=== PATIENT | male | born 1995 | race Caucasian/White ===

== ENCOUNTER 2017-09-29 13:00 | Inpatient (IN) | payer BC, OTHER ==
[~2017-09-29] VITALS: Ht 180.3 cm; Wt 107.5 kg
[~2017-09-29 13:00] MED LIST: ACET-787 PO; AMOX-842 PO; CIPR500T4 PO; DOCU-300 PO; IBUP-2213 PO; PROM25TA85 PO; TYL3 PO
[2017-09-29] MEDS ORDERED: fentaNYL 0.05 MG/ML VIAL IVP ONE ×3 (13:05→16:45)
[2017-09-29] MEDS ORDERED: ONDANSETRON 4 MG/2 ML VIAL IVP ONE ×2 (13:05→14:55)
[2017-09-29] MEDS ORDERED: NACL 0.9% 1,000 ML IV ONE (13:05)
[2017-09-29 13:17] VITALS: BP 104/64
--- NOTE | 2017-09-29 13:17 | NUR ---
22Y/M BIB SELF FOR PERIRECTAL ABCESS WITH PAIN. PATIENT CAME TO ER YESTERDAY FOR SAME COMPLAINT. DENIES N/V/D; SKIN IS PINK/WARM/DRY; AAOX4 PT DENIES ANY FEVER, CP, SOB, OR COUGH AT THIS TIME; PATIENT STATES PAIN OF 5/10 AT THIS TIME; VSS; PATIENT POSITIONED FOR COMFORT; HOB ELEVATED; BEDRAILS UP X2; BED DOWN. ER MD MADE AWARE OF PT STATUS.
[2017-09-29] MEDS ORDERED: LIDOCAINE/PRILOCAINE 2.5% 5 GM TUBE TP ONE (14:00)
[2017-09-29 14:04] LABS: PROTHROMBIN TIME 12.5 secs (10.8-13.4)
[2017-09-29] MEDS ORDERED: LIDOCAINE/PRILOCAINE 2.5% 30 GM TUBE TP ONE (14:06)
[2017-09-29 14:08] LABS: BASOPHILS % (AUTO) 0.4 % (0.0-2.0); EOSINOPHILS # (AUTO) 0.2 K/uL (0-0.4); EOSINOPHILS % (AUTO) 2.3 % (0.0-4.0); HEMATOCRIT 43.2 % (36-52); LYMPHOCYTES # (AUTO) 0.6 K/uL (2.0-11.5); LYMPHOCYTES % (AUTO) 6.4 % (20.5-51.1); MEAN CORPUSCULAR HEMOGLOBIN 32 pg (27-31); MEAN CORPUSCULAR HGB CONC 35 g/dL (33-37); MEAN CORPUSCULAR VOLUME 90.4 fL (80-94); MONOCYTES # (AUTO) 0.7 K/uL (0.8-1.0); MONOCYTES % (AUTO) 6.9 % (1.7-9.3); NEUTROPHILS # (AUTO) 8.2 K/uL (1.8-7.7); PLATELET COUNT (AUTO) 150 K/uL (140-450); RED BLOOD CELL COUNT(AUTO) 4.78 MIL/uL (4.20-6.10); RED CELL DISTRIBUTION WIDTH 12.7 % (11.6-13.7); WHITE BLOOD COUNT (AUTO) 9.8 K/uL (4.5-11.0)
[2017-09-29 14:49] LABS: ALBUMIN 4.1 g/dL (3.4-5.0); ANION GAP 13.1 (8-16); CARBON DIOXIDE 26.8 mmol/L (21-32); CREATININE 1.1 mg/dL (0.7-1.3); POTASSIUM 3.9 mmol/L (3.5-5.1); TOTAL BILIRUBIN 3.6 mg/dL (0.0-1.0)
--- NOTE | 2017-09-29 15:12 | NUR ---
TAKEN TO CT
[2017-09-29] MEDS ORDERED: LEVOFLOXACIN 750 MG/D5W PREMIX 150 ML IV ONE (16:10)
[2017-09-29] MEDS ORDERED: metroNIDAZOLE 500 MG/NS PREMIX 100 ML IV ONE (16:10)
[2017-09-29] MEDS ORDERED: CLIN300C2 PO (16:28)
[2017-09-29] MEDS ORDERED: OMEP20TC12 PO (16:28)
[2017-09-29] MEDS ORDERED: fentaNYL 0.05 MG/ML VIAL ONE ×2 (16:38→17:09)
--- NOTE | 2017-09-29 17:05 | NUR ---
Patient will be admitted to care of DR. NIÑO. Admited to SURGERY/PACU. Will go to room PACU. Belongings list completed. Report to TIMA OROZCO, PACU.
[2017-09-29] MEDS ORDERED: MEPERIDINE 50 MG/ML SYR ONE (17:09)
[2017-09-29] MEDS ORDERED: MIDAZOLAM 2 MG/2 ML VIAL ONE (17:09)
[2017-09-29] MEDS ORDERED: ONDANSETRON 4 MG/2 ML VIAL ONE (17:10)
[2017-09-29] MEDS ORDERED: KETOROLAC 60 MG/2 ML VIAL IM ONE (17:10)
[2017-09-29] MEDS ORDERED: PROPOFOL 200 MG/20 ML VIAL IV ONE (17:10)
[2017-09-29] MEDS ORDERED: SEVOFLURANE 250 ML BTL INH ONE (17:10)
[2017-09-29] MEDS ORDERED: DEXAMETHASONE 4 MG/ML VIAL ONE (17:10)
[2017-09-29] MEDS ORDERED: BUPIVACAINE-MPF 0.25% 30 ML VIAL INJ ONE (17:12)
[2017-09-29] MEDS ORDERED: HYDROGEN PEROXIDE 3% 240 ML BTL TP ONE (17:13)
[2017-09-29] MEDS ORDERED: MEPERIDINE 25 MG/ML SYR IVP PRN (18:00)
[2017-09-29] MEDS ORDERED: ONDANSETRON 4 MG/2 ML VIAL IVP PRN (18:00)
[2017-09-29] MEDS ORDERED: diphenhydrAMINE 50 MG/ML VIAL IVP PRN (18:00)
[2017-09-29] MEDS ORDERED: MEPERIDINE 25 MG/ML SYR ONE ×2 (18:23→22:21)
--- NOTE | 2017-09-29 19:13 | NUR ---
ADMITTED 22 YEARS OLD MALE FROM PACU VIA GURNEY ACCOMPANIED BY FAMILY MEMBER AT BEDSIDE. S/P I&D OF RECTAL ABSCESS. VITAL SIGNS STABLE. SLEEPING, EASILY AROUSABLE. NO COMPLAINS. CALL LIGHT WITHIN REACH. ORIENTED TO ROOM AND UNIT ROUTINES. AFEBRILE. CARE BOARD UPDATED. SEE NURSING ADMISSION ASSESSMENT AND HISTORY.
[2017-09-29] MEDS ORDERED: KETOROLAC 30 MG/ML VIAL IVP PRN (19:40)
[2017-09-29] MEDS ORDERED: IBUPROFEN 600 MG TAB PO PRN (20:10)
[2017-09-29] MEDS: LACTATED RINGERS 1,000 ML IV SCH (20:56)
[2017-09-29] MEDS: LEVOFLOXACIN 500 MG/D5W PREMIX 100 ML IV SCH (21:00)
[2017-09-29] MEDS: DEXT 5% /NACL 0.9% 1,000 ML IV SCH (21:05)
[2017-09-29] MEDS: metroNIDAZOLE 500 MG/NS PREMIX 100 ML IV SCH (21:05)
--- NOTE | 2017-09-29 21:07 | NUR ---
PT NOT READY TO DO INCENTIVE SPIROMETER. WILL TRY AGAIN LATER.
[2017-09-29] MEDS: MEPERIDINE 25 MG/ML SYR IVP PRN (22:44)
[2017-09-30 00:03] VITALS: BP 117/50
[2017-09-30] MEDS: HYDROcodone/APAP 10/325 MG 1 TAB TAB PO PRN ×4 (00:36→22:14)
--- NOTE | 2017-09-30 00:44 | NUR ---
VITAL SIGNS STABLE. AFEBRILE. DRESSING DRY AND INTACT. CALL LIGHT WITHIN REACH.
[2017-09-30] MEDS ORDERED: PNEUMOCOCCAL VACCINE 23 MCG/0.5 ML VIAL IMVAC ONE (01:35)
[2017-09-30] MEDS: LACTATED RINGERS 1,000 ML IV SCH ×3 (03:42→18:56)
[2017-09-30] MEDS ORDERED: MEPERIDINE 25 MG/ML SYR ONE (04:44)
[2017-09-30] MEDS: metroNIDAZOLE 500 MG/NS PREMIX 100 ML IV SCH ×2 (04:54→12:32)
[2017-09-30] MEDS: MEPERIDINE 25 MG/ML SYR IVP PRN ×3 (04:55→18:04)
[2017-09-30] MEDS: DEXT 5% /NACL 0.9% 1,000 ML IV SCH ×2 (05:40→15:40)
[2017-09-30 07:03] LABS: BASOPHILS % (AUTO) 0.1 % (0.0-2.0); EOSINOPHILS % (AUTO) 0.3 % (0.0-4.0); HEMATOCRIT 43.7 % (36-52); HEMOGLOBIN 15.2 g/dL (12.0-18.0); LYMPHOCYTES # (AUTO) 0.5 K/uL (2.0-11.5); MEAN CORPUSCULAR HEMOGLOBIN 32 pg (27-31); MEAN CORPUSCULAR HGB CONC 35 g/dL (33-37); MONOCYTES # (AUTO) 0.5 K/uL (0.8-1.0); MONOCYTES % (AUTO) 5.9 % (1.7-9.3); NEUTROPHILS # (AUTO) 7.4 K/uL (1.8-7.7); NEUTROPHILS % (AUTO) 87.7 % (42.2-75.2); PLATELET COUNT (AUTO) 159 K/uL (140-450); RED CELL DISTRIBUTION WIDTH 12.7 % (11.6-13.7); WHITE BLOOD COUNT (AUTO) 8.4 K/uL (4.5-11.0)
--- NOTE | 2017-09-30 07:28 | NUR ---
ENDORSED CARE AT BEDSIDE WITH YONI OROZCO, PATIENT IN STABLE CONDITION.
--- NOTE | 2017-09-30 07:29 | NUR ---
REPORT RECEIVED FROM LEAD SOFTWARE DEVELOPER NURSE, PT RESTING QUIETLY IN BED NAD, RESP EVEN UNLABORED, SKIN WARM DRY COLOR WNL, DENIES PAIN OR DISCOMFORT, PLAN OF CARE REVIEWED, NO IMMEDIATE NEEDS IDENTIFIED AT THIS TIME, CALL DALEY WITHIN REACH SIDE RAILS UP, BED LOCKED IN LOW POSITION, WILL CONTINUE TO MONITOR.
[2017-09-30 08:00] VITALS: BP 109/59
[2017-09-30 08:07] LABS: ANION GAP 13.3 (8-16); CARBON DIOXIDE 26.1 mmol/L (21-32); POTASSIUM 4.4 mmol/L (3.5-5.1)
--- NOTE | 2017-09-30 08:26 | NUR ---
AM MED GIVEN. PAIN ASSESSMENT 12/14. RECTAL INCISION PAIN. DRESSING DRY AND INTACT. PT WAS MEDICATED ORDERED. WILL CONTINUE TO MONITOR.
[2017-09-30] MEDS ORDERED: NON-FORMULARY ITEM (Omeprazole (Omeprazole) 20 MG) PO SCH (09:00)
[2017-09-30] MEDS ORDERED: PANTOPRAZOLE 40 MG TABEC PO SCH (09:00)
--- NOTE | 2017-09-30 09:54 | NUR ---
PATIENT HAS BEEN SCREENED AND CATEGORIZED HIGH NUTRITION RISK. PATIENT WILL BE SEEN WITHIN 1-2 DAYS OF ADMISSION. 09/30/17 - 10/01/[address]
--- NOTE | 2017-09-30 10:15 | NUR ---
PT WANTS TO BE DISCHARGED HOME, PT STATES HE WAS TOLD HE WILL GO HOME FIRST THING IN THE MORNING, DR Alexx NIÑO PAGED AND CALLED BACK AND DR NIÑO RECOMMENDS PT TO STAY FOR CURRENT IV ANTIBIOTIC UNTIL WOUND CULTURE COMES BACK, PT INFORMED OF DR Jenna NIÑO'S RECOMMENDATION, BUT PT STATES HE CAN'T STAY HERE FOR THAT LONG, PT EXPRESSES THAT HE WANTS TO GO HOME AMA, PT STATES "I WANT TO GET PRESCRIPTION FOR PAIN MED AND ANTIBIOTIC AND GO HOME", PT EDUCATED THAT WHEN A PATIENT LEAVE AMA, PRESCRIPTIONS WILL NOT BE PROVIDED, PT STATES " I WILL JUST GO TO MY REGULAR DOCTOR." WILL NOTIFY DR NIÑO.
--- NOTE | 2017-09-30 11:08 | NUR ---
PT NOW DECIDED HE WILL STAY, PT STATES " MY MOM WILL KILL ME IF I GO HOME AMA", PT NOW STATES PAIN IS EXCRUCIATING, 03/16, WILL MEDICATE.
--- NOTE | 2017-09-30 12:39 | NUR ---
SCHEDULED ANTIBIOTIC STARTED IV WITHIN NORMAL LIMITS. PT STATES PAIN BETTER THAN BEFORE. APOLOGIZING FOR PRIOR BEHAVIOR. ALL SAFETY MEASURES IN PLACE. WILL CONTINUE TO MONITOR.
--- NOTE | 2017-09-30 12:56 | NUR ---
REPORT GIVEN TO ERNESTO ARSHAD FOR CONTINUITY OF CARE.
--- NOTE | 2017-09-30 13:00 | NUR ---
RECEIVED REPORT FROM ERNESTO BEAULIEU. PT IS RESTING IN BED TALKING ON HIS CELL PHONE, PT HAS IV ON HIS LEFT AC, PATENT, INTACT, FLUSHING WELL, NO S/S OF RESPIRATORY DISTRESS OR DISCOMFORT NOTED, CALL LIGHT WITHIN REACH, WILL CONTINUE TO MONITOR.
[2017-09-30] MEDS: LORazepam 2 MG/ML VIAL IM/IVP PRN ×2 (13:11→19:05)
--- NOTE | 2017-09-30 14:21 | NUR ---
09/30/17 RD INITIAL ASSESSMENT COMPLETED PLEASE REFER TO NUTRITION ASSESSMENT UNDER CARE ACTIVITY FOR ESTIMATED NUTRITIONAL NEEDS. 1. CONTINUE REGULAR DIET TOLERATED 2. RD TO FOLLOW-UP 5-7 DAYS, LOW RISK MU [address] RD
--- NOTE | 2017-09-30 15:23 | NUR ---
CM NOTE FAXED INITIAL REVIEW TO [facility] [place] [phone] PHONE HERNAN [phone]
--- NOTE | 2017-09-30 15:28 | NUR ---
PATIENT ASKED TO TAKE A SHOWER AT THIS TIME.
[2017-09-30] MEDS: ONDANSETRON 4 MG/2 ML VIAL IVP PRN ×2 (16:48→22:14)
[2017-09-30 17:30] VITALS: BP 137/78
--- NOTE | 2017-09-30 19:17 | NUR ---
ENDORSED PT TO DRAPERY CUTTER MACHINE NURSE FOR CONTINUITY OF CARE. PT STABLE AT THIS TIME.
--- NOTE | 2017-09-30 19:20 | NUR ---
RECEIVED PT IN STABLE CONDITION FROM AM NURSE. AWAKE,ALERT AND ORIENTED X4. AMBULATORY. MED SURG PT. WITH VISITORS AT BEDSIDE. NO C/O PAIN AT THIS TIME. WITH DRESSING ON THE PERINEAL AREA. HAS HL ON THE LT AC#18. FLUSHED WITH NS, CLEAR AND PATENT. INSTRUCTED PT TO CONTINUE WITH IVF. PLAN OF CARE DISCUSSED AND VERBALIZED UNDERSTANDING. CALL LIGHT PLACED WITHIN EASY REACH. WILL CONTINUE TO MONITOR.
--- NOTE | 2017-09-30 20:15 | NUR ---
LAB CALLED @2005 FOR RESULT OF PERRECTAL ABSCESS CULTURE GROUP A BETA STREP. PAGED DR. HERNÁNDEZ ,CALLED BACK AT THIS TIME WITH ORDERS.
[2017-09-30] MEDS: LEVOFLOXACIN 500 MG/D5W PREMIX 100 ML IV SCH (21:28)
[2017-09-30] MEDS ORDERED: AMPICILLIN/SULBACTAM 3 GM VIAL ONE (21:53)
--- NOTE | 2017-09-30 22:45 | NUR ---
UNASYN IVPB TO START. PT OUT AMBULATING WITH FAMILY. INSTRUCTED FAMILY IN ROOM TO CALL IF BACK TO ROOM TO START THE ANTIBIOTICS.
[2017-09-30] MEDS: AMPICILLIN/SULBACTAM 3 GM in NACL 0.9% 100 ML IV SCH (23:15)
--- NOTE | 2017-09-30 23:23 | NUR ---
2315. PT IV LT AC CAME OUT WHILE WALKING AROUND. VIVEK GU NURSE STARTED A NEW IV ACCESS ON THE RT HAND #18,CLEAR AND PATENT.
[2017-10-01] MEDS ORDERED: MEPERIDINE 25 MG/ML SYR ONE (00:12)
[2017-10-01 00:15] VITALS: BP 116/77
[2017-10-01] MEDS: MEPERIDINE 25 MG/ML SYR IVP PRN ×3 (00:23→18:40)
[2017-10-01] MEDS: DEXT 5% /NACL 0.9% 1,000 ML IV SCH ×4 (01:40→21:10)
--- NOTE | 2017-10-01 02:10 | NUR ---
PT GOT UP THEN IV ACCESS ON RT HAND ACCIDENTALLY PULLED OUT AGAIN . CATHETER INTACT. WILL START A NEW IV ACCESS.
--- NOTE | 2017-10-01 03:00 | NUR ---
VIVEK GU NURSE STARTED A NEW IV ACCESS ON PT @ RT AC#18. CLEAR AND PATENT. WILL RESTART IVF ON THE NEW IV SITE.
[2017-10-01] MEDS: LORazepam 2 MG/ML VIAL IM/IVP PRN ×2 (03:16→13:07)
[2017-10-01] MEDS: LACTATED RINGERS 1,000 ML IV SCH ×3 (03:16→21:09)
[2017-10-01] MEDS ORDERED: AMPICILLIN/SULBACTAM 3 GM VIAL ONE (05:06)
[2017-10-01 05:41] LABS: BASOPHILS % (AUTO) 0.5 % (0.0-2.0); EOSINOPHILS # (AUTO) 0.3 K/uL (0-0.4); EOSINOPHILS % (AUTO) 3.8 % (0.0-4.0); HEMATOCRIT 39.5 % (36-52); HEMOGLOBIN 13.9 g/dL (12.0-18.0); LYMPHOCYTES # (AUTO) 1.4 K/uL (2.0-11.5); MEAN CORPUSCULAR HEMOGLOBIN 32 pg (27-31); MEAN CORPUSCULAR HGB CONC 35 g/dL (33-37); MEAN CORPUSCULAR VOLUME 90.6 fL (80-94); MONOCYTES # (AUTO) 0.4 K/uL (0.8-1.0); MONOCYTES % (AUTO) 6.3 % (1.7-9.3); NEUTROPHILS # (AUTO) 4.6 K/uL (1.8-7.7); NEUTROPHILS % (AUTO) 68.4 % (42.2-75.2); PLATELET COUNT (AUTO) 162 K/uL (140-450); RED BLOOD CELL COUNT(AUTO) 4.36 MIL/uL (4.20-6.10); RED CELL DISTRIBUTION WIDTH 12.6 % (11.6-13.7); WHITE BLOOD COUNT (AUTO) 6.7 K/uL (4.5-11.0)
--- NOTE | 2017-10-01 06:00 | NUR ---
ABLE TO SLEEP WELL . NO C/O OF ANY DISCOMFORT NOR PAIN NOTED AT THIS TIME.
[2017-10-01] MEDS: PANTOPRAZOLE 40 MG TABEC PO SCH (06:02)
[2017-10-01] MEDS: AMPICILLIN/SULBACTAM 3 GM in NACL 0.9% 100 ML IV SCH ×3 (06:02→18:00)
[2017-10-01 06:31] LABS: CARBON DIOXIDE 24.6 mmol/L (21-32); CREATININE 1.1 mg/dL (0.7-1.3); POTASSIUM 3.6 mmol/L (3.5-5.1)
--- NOTE | 2017-10-01 07:29 | NUR ---
ENDORSED PT IN STABLE CONDITION TO AM NURSE.
--- NOTE | 2017-10-01 07:30 | NUR ---
RECEIVED REPORT FROM PATTERN CHANGER AND REPAIRER RN. PATIENT IS RESTING IN BED, AWAKES EASILY. HAS NO SIGNS AND SYMPTOMS OF ACUTE DISTRESS NOTED AT THIS TIME. HAS IV TO THE RIGHT AC 18G, INFUSING D5NS AT 100 ML/HR. SITE IS CLEAN, DRY, PATENT AND INTACT. DISCUSSED PLAN OF CARE WITH PATIENT AND HE VERBALIZED UNDERSTANDING. BED IN LOWEST POSITION, SIDE RAILS UP X2, CALL LIGHT WITHIN REACH.
[2017-10-01 08:00] VITALS: BP 123/93
--- NOTE | 2017-10-01 08:44 | NUR ---
DR JORDAN CAME AND SPOKE WITH THE PATIENT. INFORMED HIM THAT PATIENT HAD WOUND PACKED YESTERDAY. PATIENT STATED THAT HE TOOK A SHOWER BUT NO SITZ BATH. DR JORDAN SAID PATIENT IS OKAY TO GO HOME ON PO ANTIBIOTICS.
[2017-10-01] MEDS: HYDROcodone/APAP 10/325 MG 1 TAB TAB PO PRN (11:12)
--- NOTE | 2017-10-01 12:18 | NUR ---
WOUND CARE EVALUATION NOTE: REASON FOR EVALUATION: S/P I&D LEFT LEYDI RECTAL WOUND WOUND ASSESSMENT DONE ON THIS 22 Y/O MALE PATIENT FROM HOME TO [facility], WITH INITIAL DIAGNOSIS OF PERIRECTAL PAIN X 2 DAYS. ALL ABOVE INFORMATION WAS OBTAINED FROM THE ADMISSION H&P. HISTORY OF PERIRECTAL ABSCESS PER PT. PT IS AAX4. LABS ARE WBC 6.7, H/H 4.3/13.9, GLUCOSE 113 AND ALBUMIN 1.4. SKIN WARM TO TOUCH WNL, SKIN TURGOR GOOD. PT. ABLE TO AMBULATE TO BR. WOUND CARE TEACHING PROVIDES, PT STAT " MY MOM IS AN ER NURSE ,SHE KNOWS HOW TO DO IT." INITIAL PLAN OF CARE DISCUSSED WITH PT AND PRIMARY RN. PT.ABLE TO VERBALIZE UNDERSTANDING. PT HAS LOW PAIN TOLERANCE, PT IS ALLERGY TO MORPHINE, PAIN MEDICATIONS GIVEN BY PRIMARY RN BEFORE WOUND CARE, GIRLFRIEND IS AT BED SIDE COACHING AND DISTRACTION PROVIDES. INTEGUMENTARY: S/P I&D ON LEFT LEYDI-RECTAL WOUND, 5X2X1.2CM WOUND BED RED AND CLEAN, SMALL AMOUNT OF SEROSANGUINEOUS DRAINAGE NOTICE, NO ODOR, WOUND EDGE WELL DEFINED, LEYDI-WOUND SKIN INTACT. RECOMMENDATIONS: -DO NOT USE WOUND CLEANSING SOLUTION. -CLEANSE LEFT LEYDI-RECTAL WOUND WITH NORMAL SALINE, PAT DRY, PACK WOUND WITH 1/4" IODOFORM AND COVER WITH DRY DRESSING QD AND PRN IF SOILING, PLEASE PACK WOUND FROM 6 O'CLOCK. -ENCOURAGE TURN AND REPOSITION Q 2H, AMBULATE TOLERATE. -ASSESS AND MONITOR WOUND CONDITION DURING DRESSING CHANGE. REPORT FOR ANY S/ OF INFECTION -KEEP LEYDI-RECTAL CLEAN AND DRY AT ALL TIMES. - FOLLOW UP APPOINTMENT WITH SURGEON 1-2 WEEKS AFTER DISCHARGE. RECOMMENDATIONS DISCUSSED WITH PRIMARY RN WILL FOLLOW UP PATIENT PRN. PLEASE CONTACT WOUND CARE NURSE FOR ANY CONCERNS, QUESTIONS AND CHANGES IN SKIN CONDITION. Addendum: 10/01/17 at 1249 by Shaun Kraus RN (Grace) ALBUMIN LEVEL IS 4.1 NOT 1.4.
--- NOTE | 2017-10-01 13:30 | NUR ---
CHANDANA BRUNNER TECH LET ME KNOW THAT [employer] EMERGENCY DISPATCHER CALLED STATING THAT A PATIENT IS IN THE FRONT LOBBY. WENT TO CHECK AND IT WAS PT. MAYA WENT WITH ME TO CHECK ROOM AGAIN AND PATIENTS GIRLFRIEND WAS LAYING THE BED. MAYA ADDRESSED TO HER THAT WE DON'T ALLOW GUESTS IN THE PATIENTS BED, GIRLFRIEND STATED THAT SOMEONE ELSE HAD SAID IT WAS OKAY AND PATIENTS MOM IS IN CHARGE HERE. MAYA INFORMED THE GIRLFRIEND THAT SHE IS IN CHARGE OF THE UNIT.
--- NOTE | 2017-10-01 14:08 | NUR ---
FAXED CONCURRENT REVIEW TO [facility] [place] [phone] PHONE HERNAN [phone]
--- NOTE | 2017-10-01 15:53 | NUR ---
SPO[place] WITH HERNNA [place] [facility] SHE SAID IF PATIENT NEEDS HOME HEALTH FOR WOUND CARE, SHE SET UP WITH [facility], . AUTH IS [id number]. FAX IS [phone]. WHEN ORDER IS RECEIVED, FAX TO BOTH [facility] AND [facility] [facility] FAX IS [phone] ATTENTION TRICIA.
[2017-10-01 16:00] VITALS: BP 111/74
--- NOTE | 2017-10-01 16:30 | NUR ---
PATIENT HAD REMOVED IV TUBING FROM IV SITE AND WALKED AROUND. CONNECTED IV BACK TO PATIENT AND CONTINUED TO INFUSE UNASYN AT THIS TIME. NEXT DOSE IS DUE AT 1800. WILL ENDORSE TO BLIND INSTALLER NURSE SO THAT DOSE ISN'T TOO CLOSE TOGETHER.
--- NOTE | 2017-10-01 17:55 | NUR ---
PATIENT REQUESTING TO TAKE A SHOWER. WILL COVER UP IV SITE.
--- NOTE | 2017-10-01 18:06 | NUR ---
RECEIVED A CALL EARLIER FROM TRICIA FROM [facility] [place]. SHE SAID THE PHONE NUMBERS ON THE FACE SHEET DIDN'T GO THROUGH. YUVAL SMITH SPOKE WITH THE PATIENT AND HE SAID HIS CELL I [phone] AND TO CALL 2 TIMES AND IT GOES TO VOICE MAIL CALLED TRICIA AT [phone] AND GAVE HER THE PHONE NUMBER.
--- NOTE | 2017-10-01 18:12 | NUR ---
ENDORSED PATIENT TO ERNESTO ROSAS FOR CONTINUITY OF CARE. PATIENT IN STABLE CONDITION.
--- NOTE | 2017-10-01 18:12 | NUR ---
RECEIVED REPORT FROM ARYA RN. PT IS CURRENTLY TAKING A SHOWER. WILL NEED TO REPACK HIS WOUND. UNASYN DOSE IS DUE AT 1800. PER VALERI, PT WAS DISCONNECTED AND FINISHED HIS 1200 DOSE AROUND 1700. CALLED PHARMACIST AND NOTIFIED HER OF THE SITUATION. WILL HOLD 1800. OK PER PHARMACIST.
--- NOTE | 2017-10-01 18:47 | NUR ---
ADMINISTERED DEMEROL REQUESTED. PT TOLERATED WELL. WILL LET ME KNOW WHEN THE PT IS READY FOR WOUND CARE.
--- NOTE | 2017-10-01 19:05 | NUR ---
REPACKED INCISION. PT TOLERATED WELL. WILL CONTINUE TO MONITOR PT.
--- NOTE | 2017-10-01 19:25 | NUR ---
ENDORSED PT TO THE HOUSEKEEPING AND LAUNDRY TEAM LEADER NURSE AT BEDSIDE FOR CONTINUITY OF CARE. PT IS IN STABLE CONDITION.
--- NOTE | 2017-10-01 19:35 | NUR ---
RECEIVED REPORT FROM DAY SHIFT, PATIENT RESTING IN BED, NO S/S OF DISTRESS NOTED, GIRLFRIEND AND FATHER AT THE BEDSIDE. IV PATENT AND INTACT. PLAN OF CARE DISCUSSED, SAFETY MEASURE ENSURED, WILL CONTINUE TO MONITOR.
[2017-10-01] MEDS: NACL 0.9% IRR 250 ML BOTTLE IR SCH (20:50)
[2017-10-01] MEDS: LEVOFLOXACIN 500 MG/D5W PREMIX 100 ML IV SCH (21:04)
[2017-10-01] MEDS: ONDANSETRON 4 MG/2 ML VIAL IVP PRN (21:10)
--- NOTE | 2017-10-01 21:18 | NUR ---
DUE MEDICATION GIVEN, PATIENT TOLERATED WELL. ADMINISTERED ZOFRAN PATIENT REQUESTED DUE TO " I FEEL NAUSEA BECAUSE I ATE TOO MUCH." PATIENT IS PLAYING VIDEO GAME AND GIRLFRIEND AT THE BEDSIDE. NO S/S OF DISTRESS NOTED, WILL CONTINUE TO MONITOR.
--- NOTE | 2017-10-01 23:39 | NUR ---
PATIENT IS SLEEPING, NO S/S OF DISTRESS NOTED, RESPIRATION EVEN AND UNLABORED, CALL LIGHT WITHIN REACH, SAFETY MEASURE ENSURED, WILL CONTINUE TO MONITOR.
[2017-10-02] VITALS: BP 102/59
--- NOTE | 2017-10-02 01:45 | NUR ---
PATIENT LEFT ROOM AND WENT TO THE ER , ACCORDING TO THE PATIENT," I WANT TO GO TO THE ER TO TALK TO MY MOM." CHARGE NURSE IS AWARE. THEREFORE, UNASYN STARTED LATE.
[2017-10-02] MEDS: AMPICILLIN/SULBACTAM 3 GM in NACL 0.9% 100 ML IV SCH ×3 (01:50→11:59)
[2017-10-02] MEDS ORDERED: MEPERIDINE 25 MG/ML SYR ONE (02:02)
[2017-10-02] MEDS: MEPERIDINE 25 MG/ML SYR IVP PRN ×2 (02:15→09:12)
--- NOTE | 2017-10-02 02:30 | NUR ---
STATED PAIN 01/14, BP 122/76 HR 80, DEMEROL 25MG GIVEN ORDERED, WILL CONTINUE TO MONITOR.
--- NOTE | 2017-10-02 03:24 | NUR ---
PATIENT IS SLEEPING, NO S/S OF DISTRESS NOTED, RESPIRATION EVEN AND UNLABORED, ON ROOM AIR. CALL LIGHT WITHIN REACH, SAFETY MEASURE ENSURED, WILL CONTINUE TO MONITOR.
[2017-10-02] MEDS: LACTATED RINGERS 1,000 ML IV SCH ×2 (03:46→12:36)
[2017-10-02] MEDS: PANTOPRAZOLE 40 MG TABEC PO SCH (06:17)
[2017-10-02] MEDS: DEXT 5% /NACL 0.9% 1,000 ML IV SCH (06:41)
[2017-10-02 07:20] LABS: BASOPHILS # (AUTO) 0.1 K/uL (0.00-0.22); EOSINOPHILS # (AUTO) 0.2 K/uL (0-0.4); HEMOGLOBIN 14.9 g/dL (12.0-18.0); LYMPHOCYTES # (AUTO) 1.4 K/uL (2.0-11.5); LYMPHOCYTES % (AUTO) 27.9 % (20.5-51.1); MEAN CORPUSCULAR HEMOGLOBIN 31 pg (27-31); MEAN CORPUSCULAR HGB CONC 34 g/dL (33-37); MEAN CORPUSCULAR VOLUME 91.8 fL (80-94); MONOCYTES # (AUTO) 0.4 K/uL (0.8-1.0); MONOCYTES % (AUTO) 7.6 % (1.7-9.3); NEUTROPHILS # (AUTO) 2.9 K/uL (1.8-7.7); NEUTROPHILS % (AUTO) 59.5 % (42.2-75.2); PLATELET COUNT (AUTO) 196 K/uL (140-450); RED BLOOD CELL COUNT(AUTO) 4.79 MIL/uL (4.20-6.10); RED CELL DISTRIBUTION WIDTH 12.7 % (11.6-13.7); WHITE BLOOD COUNT (AUTO) 4.9 K/uL (4.5-11.0)
--- NOTE | 2017-10-02 07:20 | NUR ---
ENDORSED PLAN OF CARE TO DAY SHIFT RN, PATIENT IS SLEEPING, NO S/S OF DISTRESS NOTED, PATIENT IS IN STABLE CONDITION.
--- NOTE | 2017-10-02 07:21 | NUR ---
RECEIVED REPORT FROM MESMERIST NURSE AT BEDSIDE FOR CONTINUITY OF CARE. PATIENT ASLEEP. GIRLFRIEND AT BEDSIDE. IV BREATHING EVEN AND UNLABORED ON ROOM AIR. NO SIGNS OF DISTRESS OR SOB NOTED AT THIS TIME. IV PATENT, INTACT, AND ASYMPTOMATIC INFUSING IVF WELL. SAFETY PRECAUTION IN PLACE, CALL LIGHT WITHIN REACH, WILL CONTINUE TO MONITOR PATIENT.
[2017-10-02 07:32] LABS: CARBON DIOXIDE 29.5 mmol/L (21-32); CREATININE 1.1 mg/dL (0.7-1.3); POTASSIUM 4.5 mmol/L (3.5-5.1)
[2017-10-02 08:00] VITALS: BP 116/61
--- NOTE | 2017-10-02 09:18 | NUR ---
PATIENT C/O OF 10/10 PERINEAL PAIN, MEDICATED FOR PAIN. PATIENT TOLERATED IT WELL. PATIENT RESTING IN BED, GIRLFRIEND AT BEDSIDE. SAFETY PRECAUTION IN PLACE, CALL LIGHT WITHIN REACH. WILL CONTINUE TO MONITOR PATIENT.
--- NOTE | 2017-10-02 11:15 | NUR ---
DR. NIÑO IN TO SEE THE PATIENT. DISCHARGE ORDER IN, INFORMED PATIENT. PATIENT WILL STAY UNTIL HIS DOSE OF IVPB ANTIBIOTICS IS DONE. PATIENT AGREEABLE WITH THE PLAN. SAFETY PRECAUTION IN PLACE, CALL LIGHT WITHIN REACH, WILL CONTINUE TO MONITOR PATIENT.
[2017-10-02] MEDS ORDERED: AMOX-999 PO (11:18)
[2017-10-02] MEDS: HYDROcodone/APAP 10/325 MG 1 TAB TAB PO PRN (11:58)
[2017-10-02] MEDS: ONDANSETRON 4 MG/2 ML VIAL IVP PRN (12:07)
[2017-10-02] MEDS ORDERED: PNEUMOCOCCAL VACCINE 23 MCG/0.5 ML VIAL IMVAC SCH (13:35)
[2017-10-02] MEDS: NACL 0.9% IRR 250 ML BOTTLE IR SCH (13:40)
--- NOTE | 2017-10-02 13:45 | NUR ---
DRESSING CHANGED FOR PERINEAL WOUND. NO DRAINAGE NOTED. PATIENT MEDICATED WITH NORCO PROPHYLAXIS FOR PAIN. PATIENT TOLERATED DRESSING CHANGE WELL. FATHER AT BEDSIDE. PATIENT IV REMOVED, IV CATHETER INTACT, MINIMAL BLOOD NOTED, VACCINE GIVEN, NO REACTION NOTED, PATIENT TOLERATED IT WELL. DISCHARGE INSTRUCTION AND EDUCATION GIVEN, PATIENT AND FATHER VERBALIZED UNDERSTANDING. PATIENT WILL NOW GATHER HIS BELONGINGS AND GET READY TO BE DISCHARGED. Addendum: 10/02/17 at 2012 by Fan Nicholson RN ID BANDS CUT.
--- NOTE | 2017-10-02 14:15 | NUR ---
PATIENT AMBULATED OFF FLOOR ACCOMPANIED BY FATHER AND RN STUDENT. PATIENT TOOK ALL HIS BELONGINGS WITH HIM. PATIENT IN STABLE CONDITION.
== END 2017-10-02 14:15 | disposition home or self-care (01) | DRG 349 ==
LOC: MED 13:00 → MTU 16:47
PROVIDERS: ADMIT Preventive Medicine Preventive Medicine/Occupational Environmental Medicine; ATTEND Preventive Medicine Preventive Medicine/Occupational Environmental Medicine
PROC: 0D9Q0ZZ Drainage of Anus, Open Approach (ICD-10-PCS; principal; 2017-09-29 17:00)
DX: K61.1 Rectal abscess (principal); R16.1 Splenomegaly, not elsewhere classified; K61.0 Anal abscess; K58.9 Irritable bowel syndrome, unspecified; K21.9 Gastro-esophageal reflux disease without esophagitis; R73.9 Hyperglycemia, unspecified; N20.0 Calculus of kidney; B95.4 Other streptococcus as the cause of diseases classified elsewhere; E66.8 Other obesity; Z90.49 Acquired absence of other specified parts of digestive tract; Z88.5 Allergy status to narcotic agent; Z79.899 Other long term (current) drug therapy; Z68.33 Body mass index [BMI] 33.0-33.9, adult; Z82.3 Family history of stroke; Z82.49 Family history of ischemic heart disease and other diseases of the circulatory system; Z87.442 Personal history of urinary calculi
CPT/HCPCS: 36415; 80048; 80053; 83605; 85025; 85610; 85651; 85730; 86140; 86886; 86900; 86901; 87040; 87070; 87075; 87081; 87205; 90732; 96365; 96375; 96376; 99285; J0295; J1100; J1885; J1956; J2060; J2175; J2250; J2405; J2704; J3010; J3490; J7030; J7042; J7060; Q9967

== ENCOUNTER 2018-04-21 06:43 | Emergency (ER) | payer BC ==
[~2018-04-21] VITALS: Ht 182.9 cm; Wt 108.9 kg
[~2018-04-21 06:43] MED LIST changes: -AMOX-842 PO; +AMOX-999 PO; -CIPR500T4 PO; -DOCU-300 PO; +OMEP20TC12 PO; -PROM25TA85 PO; -TYL3 PO
[2018-04-21 06:54] VITALS: BP 112/68
[2018-04-21] MEDS ORDERED: TETRACAINE HCL/PF 0.5% OPTH 4 ML BTL ONE (06:54)
[2018-04-21] MEDS ORDERED: fentaNYL 0.05 MG/ML VIAL IVP ONE ×2 (07:15→09:00)
[2018-04-21] MEDS ORDERED: NACL 0.9% 1,000 ML IV ONE (07:15)
[2018-04-21] MEDS ORDERED: ONDANSETRON 4 MG/2 ML VIAL IVP ONE (07:15)
[2018-04-21 09:30] VITALS: BP 104/61
== END 2018-04-21 09:30 | disposition home or self-care (01) ==
LOC: MED 06:43
DX: G43.909 Migraine, unspecified, not intractable, without status migrainosus (principal); K21.9 Gastro-esophageal reflux disease without esophagitis; Z88.5 Allergy status to narcotic agent; Z79.899 Other long term (current) drug therapy
CPT/HCPCS: 70450; 70480; 96374; 96375; 96376; 99285; J2405; J3010; J7030

== ENCOUNTER 2019-03-07 16:15 | Emergency (ER) | payer BC ==
[~2019-03-07] VITALS: Ht 180.3 cm; Wt 104.3 kg
[2019-03-07 16:21] VITALS: BP 115/96
[2019-03-07] MEDS ORDERED: TETRACAINE HCL/PF 0.5% OPTH 4 ML BTL ONE (16:25)
[2019-03-07] MEDS ORDERED: FLUORESCEIN OPTH STRIP 0.6 MG ONE (16:26)
[2019-03-07] MEDS ORDERED: FLUORESCEIN OPTH STRIP 0.6 MG OP ONE (16:30)
[2019-03-07] MEDS ORDERED: TETRACAINE HCL/PF 0.5% OPTH 4 ML BTL OP ONE (16:30)
[2019-03-07] MEDS ORDERED: KETOROLAC 30 MG/ML VIAL IM ONE (16:50)
[2019-03-07 17:07] VITALS: BP 115/96
== END 2019-03-07 17:07 | disposition home or self-care (01) ==
LOC: MED 16:15
DX: T15.01XA Foreign body in cornea, right eye, initial encounter (principal); K21.9 Gastro-esophageal reflux disease without esophagitis; F17.210 Nicotine dependence, cigarettes, uncomplicated; Z98.890 Other specified postprocedural states; Z79.899 Other long term (current) drug therapy; Z88.5 Allergy status to narcotic agent; X58.XXXA Exposure to other specified factors, initial encounter; Y93.89 Activity, other specified; Y92.89 Other specified places as the place of occurrence of the external cause; Y99.8 Other external cause status
CPT/HCPCS: 65222; 96372; 99284; J1885

== ENCOUNTER 2019-06-09 17:00 | Emergency (ER) | payer BC ==
[~2019-06-09] VITALS: Ht 180.3 cm; Wt 108.0 kg
[2019-06-09 17:09] VITALS: BP 122/72
--- NOTE | 2019-06-09 17:15 | NUR ---
Patient ambulated to bed 1. RN evaluating patient at bedside.
[2019-06-09 17:52] LABS: BASOPHILS % (AUTO) 0.6 % (0.0-2.0); EOSINOPHILS # (AUTO) 0.2 K/uL (0-0.4); EOSINOPHILS % (AUTO) 2.5 % (0.0-4.0); HEMATOCRIT 47.1 % (36-52); HEMOGLOBIN 16.3 g/dL (12.0-18.0); LYMPHOCYTES # (AUTO) 1.8 K/uL (2.0-11.5); LYMPHOCYTES % (AUTO) 21.3 % (20.5-51.1); MEAN CORPUSCULAR HEMOGLOBIN 32 pg (27-31); MEAN CORPUSCULAR HGB CONC 35 g/dL (33-37); MEAN CORPUSCULAR VOLUME 90.9 fL (80-94); MONOCYTES # (AUTO) 0.6 K/uL (0.8-1.0); MONOCYTES % (AUTO) 7.7 % (1.7-9.3); NEUTROPHILS # (AUTO) 5.7 K/uL (1.8-7.7); NEUTROPHILS % (AUTO) 67.9 % (42.2-75.2); PLATELET COUNT (AUTO) 202 K/uL (140-450); RED BLOOD CELL COUNT(AUTO) 5.18 MIL/uL (4.20-6.10); RED CELL DISTRIBUTION WIDTH 12.9 % (11.6-13.7); WHITE BLOOD COUNT (AUTO) 8.4 K/uL (4.8-10.8)
--- NOTE | 2019-06-09 17:59 | NUR ---
BIB SELF C/O ABD PAIN 9/10, COFFEE GROUND EMESIS, SINUSITIS, RHINORHEA X2 WEEKS ABD PAIN AND COFFEE GROUND EMESIS HAS BEEN OCCURING FOR THE PAST MONTH. DARK STOOL/DIARRHEA FOR THE PAST MONTH WELL. SORE THROAT AND RHINORRHEA + PRODUCTIVE COUGH HAS BEEN OCCURRING FOR TWO WEEKS. SPUTUM IS THICK AND YELLOW. NO SOB, NO CHEST PAIN. NO REPORTS OF FEVER. ADV REACTIONS: MORPHINE
[2019-06-09 18:07] LABS: ANION GAP 12.4 (8-16); CARBON DIOXIDE 25.5 mmol/L (21-32); POTASSIUM 3.9 mmol/L (3.5-5.1)
[2019-06-09 18:14] LABS: ALBUMIN 3.8 g/dL (3.4-5.0); TOTAL BILIRUBIN 0.8 mg/dL (0.0-1.0)
--- NOTE | 2019-06-09 18:18 | NUR ---
PT TAKEN TO CT VIA WHEELCHAIR
--- NOTE | 2019-06-09 18:37 | NUR ---
PT BACK FROM CT. RESTING IN BED.
--- NOTE | 2019-06-09 18:55 | NUR ---
PATIENT RESTING IN BED, C/O SORE THROAT PAIN 01/14, MD NOTIFIED.
[2019-06-09] MEDS ORDERED: LIDOCAINE VISCOUS 2% 20 ML UDC PO ONE (19:00)
--- NOTE | 2019-06-09 19:22 | NUR ---
REPORT GIVEN TO DENISE.
--- NOTE | 2019-06-09 19:28 | NUR ---
REPORT RECEIVED FROM PREVIOUS RN. PATIENT RESTING WITH EYES CLOSED, BREATHING EVEN AND UNLABORED.
--- NOTE | 2019-06-09 20:53 | NUR ---
PATIENT STATES PAIN 9/10 IN JAW AREA, DR TAY NOTIFIED
--- NOTE | 2019-06-09 20:57 | NUR ---
DR TAY AT BEDSIDE
[2019-06-09] MEDS ORDERED: HYDROcodone/APAP 5/325 MG 1 TAB TAB PO ONE (21:05)
[2019-06-09] MEDS ORDERED: CEPHALEXIN 500 MG CAP PO ONE (21:05)
--- NOTE | 2019-06-09 21:19 | NUR ---
PATIENT ALERT AND ORIENTED, BREATHING EVEN AND UNLABORED
[2019-06-09 21:44] VITALS: BP 130/66
--- NOTE | 2019-06-09 21:44 | NUR ---
Patient discharged with v/s stable. Written and verbal after care instructions ABOUT TONSILITIS given and explained. Patient alert, oriented and verbalized understanding of instructions. Ambulatory with steady gait. All questions addressed prior to discharge. ID band removed. Patient advised to follow up with PMD. Rx of ZOFRAN, PEPCID, KEFLEX, NORCO given. Patient educated on indication of medication including possible reaction and side effects. Opportunity to ask questions provided and answered.
== END 2019-06-09 21:44 | disposition home or self-care (01) ==
LOC: MED 17:00
DX: R07.0 Pain in throat (principal); R11.10 Vomiting, unspecified; K21.9 Gastro-esophageal reflux disease without esophagitis; Z90.49 Acquired absence of other specified parts of digestive tract; Z79.899 Other long term (current) drug therapy; Z88.5 Allergy status to narcotic agent
CPT/HCPCS: 36415; 70491; 80053; 83690; 85025; 87081; 99284; Q9967

== ENCOUNTER 2019-12-11 21:40 | Emergency (ER) | payer BC, SELFPAY ==
[~2019-12-11] VITALS: Ht 180.3 cm; Wt 104.3 kg
[~2019-12-11 21:40] MED LIST changes: -ACET-787 PO; +HYDR-5191 PO
[2019-12-11 22:16] VITALS: BP 135/79
--- NOTE | 2019-12-11 22:18 | NUR ---
PT TO A/W MEDICAL EVAULATION IN TENT. VSS
--- NOTE | 2019-12-11 22:37 | NUR ---
COVID SWAB COLLECTED.
--- NOTE | 2019-12-11 22:37 | NUR ---
ERMD DR. SHUKLA EVALUATING PT
--- NOTE | 2019-12-11 22:42 | NUR ---
24 Y/O MALE PRESENTS TO ER WITH C/O SOB, LOSS OF SMELL, AND TASTE X 3-4 DAYS. 0/10 PAIN AT PRESENT TIME. ALSO C/O COUGH WITH WHITE PHLEGM, AND CONGESTION, HAVING DIARRHEA X 1 WEEK, AND VOMITING X 1 NIGHT AGO. ALSO FEELS SWEATY, AND CLAMMY. VSS, R/R EQUAL, AND UNLABORED. SITTING IN CHAIR CALM, AND COOPERATIVELY. NKDA DENIES PMH
--- NOTE | 2019-12-11 23:01 | NUR ---
Patient discharged with v/s stable. Written and verbal after care instructions given and explained. Patient alert, oriented and verbalized understanding of instructions. Ambulatory with steady gait. All questions addressed prior to discharge. ID band removed. Patient advised to follow up with PMD. Rx of MOTRIN; PROMETHAZINE given. Patient educated on indication of medication including possible reaction and side effects. Opportunity to ask questions provided and answered.
[2019-12-11 23:04] VITALS: BP 135/79
--- NOTE | 2019-12-14 16:57 | NUR ---
COVID RESULTS RECEIVED FROM LAB. COVID RESULTS POSITIVE. COPY OF RESULT PLACED IN INFECTION CONTROL'S MAILBOX.
== END 2019-12-11 23:01 | disposition home or self-care (01) ==
LOC: EEVIPCON 21:40 → MED 21:40
DX: U07.1 COVID-19 (principal); K21.9 Gastro-esophageal reflux disease without esophagitis; Z88.5 Allergy status to narcotic agent; Z79.899 Other long term (current) drug therapy
CPT/HCPCS: 99283; U0003